=== PATIENT | female | born 1955 | race Hispanic/Latino ===

== ENCOUNTER 2018-06-01 19:51 | Emergency (ER) | payer MEDICARE, BC ==
[~2018-06-01] VITALS: Ht 165.1 cm; Wt 79.4 kg
[~2018-06-01 19:51] MED LIST: ATORVASTATIN CA40 MG PO; LEVOTHYROXINE75 MCG PO; LISINOPRIL-HCT1 EAC2 PO
[2018-06-01] MEDS ORDERED: HYDROCODONE/APAP 5MG-325MG TAB PO NR (20:45)
--- NOTE | 2018-06-01 21:16 | Diagnostic Imaging Report ---
Exam: Left Ankle Series. History: Left lateral side of ankle pain, status post fall Comparison: None. DISCUSSION: 3 views of the left ankle. There is normal bone mineralization. No evidence of acute, displaced fracture or dislocation. Linear lucency in the medial malleolus seen only in one view extends outside the edges of the bone into the soft tissues and likely reflects summation of shadows. Ankle mortise is preserved.No osteochondral lesion. No abnormal soft tissue calcification or mass. Soft tissue swelling in the lateral aspect of the ankle. IMPRESSION: 1. No acute, displaced fracture or dislocation. 2. Linear lucency in the medial malleolus is seen only in one view, extends outside the edges of the bone into the soft tissues and likely reflects summation of shadows, given the absence of soft tissue swelling. The staff physician below has personally reviewed this exam on the date of dictation. Signed by: Dr. Zack Dias M.D. on 06/01/2018 9:13 PM
[2018-06-01] MEDS ORDERED: TYLENOL WITH C1 EACH PO (21:45)
== END 2018-06-01 22:03 | disposition home or self-care (01) ==
LOC: FSED 19:51
DX: S93.412A Sprain of calcaneofibular ligament of left ankle, initial encounter (principal); X50.1XXA Overexertion from prolonged static or awkward postures, initial encounter; Y92.008 Other place in unspecified non-institutional (private) residence as the place of occurrence of the external cause; I10 Essential (primary) hypertension; E07.9 Disorder of thyroid, unspecified
CPT/HCPCS: 99283

== ENCOUNTER 2018-10-28 08:50 | Observation (INO) | payer BC, MEDICARE ==
[~2018-10-28] VITALS: Ht 162.6 cm; Wt 81.6 kg
[~2018-10-28 08:50] MED LIST changes: +TYLENOL WITH C1 EACH PO
--- OUTSIDE RECORDS SUMMARY | 2018-10-28 08:53 | XMS REPORT ---
[facility] Address Unknown Phone Unavailable Care Team Providers Care Knot Tier Name Role Phone Dean ABRAMS Unavailable Unavailable Problems This patient has no known problems. Allergies, Adverse Reactions, Alerts This patient has no known allergies or adverse reactions. Medications This patient has no known medications. Results Test Description Test Time Test Comments Text Results Atomic Results Result Comments ANKLE [facility] 2018-06-01 21:10:00 [place] [address] Patient Name: TREY BARNHART MR #: [id number] : 1955 Age/Sex: 63/F Req #: [id number] Adm Physician: Ordered by: NATASHA ABRAMS MD Report #: [id number] Location: [facility] Room/Bed: Procedure: [id number] HOPD/ANKLE [facility] Exam Date: 06/01/18 Exam Time: 2049 REPORT STATUS: Signed Exam: Left Ankle Series. History: Left lateral side of ankle pain, status post fall Comparison: None. DISCUSSION: 3 views of the left ankle. There is normal bone mineralization. No evidence of acute, displaced fracture or dislocation. Linear lucency in the medial malleolus seen only in one view extends outside the edges of the bone into the soft tissues and likely reflects summation of shadows. Ankle mortise is preserved.No osteochondral lesion. No abnormal soft tissue calcification or mass. Soft tissue swelling in the lateral aspect of the ankle. IMPRESSION: 1. No acute, displaced fracture or dislocation. 2. Linear lucency in the medial malleolus is seen only in one view, extends outside the edges of the bone into the soft tissues and likely reflects summation of shadows, given the absence of soft tissue swelling. The staff physician below has personally reviewed this exam on the date of dictation. Signed by: Dr. Ria Dias M.D. on 06/01/2018 9:13 PM Dictated By: RIA DIAS MD 12 Transcribed By: TRINA on 06/01/182112 COPY TO: NATASHA ABRAMS MD
[2018-10-28] MEDS ORDERED: LISINOPRIL-HCT1 EAC1 PO (09:25)
--- NOTE | 2018-10-28 09:38 | Diagnostic Imaging Report ---
EXAM: CXR 2 VIEW - HOPD, PA and lateral DATE: 10/28/2018 Time stamp on exam: 9:24 AM INDICATION: Status post fall COMPARISON: None FINDINGS: LINES/TUBES: None LUNGS: No consolidations or edema. PLEURA: No effusions or pneumothorax. HEART AND MEDIASTINUM: Normal size and contour. BONES AND SOFT TISSUES: No acute findings. No obvious rib fractures. IMPRESSION: No acute thoracic abnormality. Signed by: Dr. Baudilio Canales DO on 10/28/2018 9:35 AM
--- NOTE | 2018-10-28 10:03 | Diagnostic Imaging Report ---
Examination: CT head without contrast Clinical Indication: Syncope. Fall with head injury. Technique: Transaxial noncontrast images from the skull base through the vertex were obtained. Sagittal and coronal reformatted images were done. Dose modulation, iterative reconstruction, and/or weight based adjustment of the mA/kV was utilized to reduce the radiation dose to as low as reasonably achievable. Comparison: None. Findings: Scalp: No abnormalities. Bones: Intact. No fractures. No blastic or lytic lesions. Brain sulci: Appropriate for patient's age. Ventricles: Normal in size and configuration. No hydrocephalus. Extra-axial space: No abnormalities. Parenchyma: No abnormal densities. No masses, hemorrhage, or acute or chronic cortical based vascular insults. Suprasellar region: No abnormalities. Craniocervical junction: The foramen magnum is patent. No Chiari one malformation. Incidental findings: Near complete opacification of the partially visualized bilateral maxillary sinuses. Moderate inflammatory mucosal thickening of the bilateral ethmoid air cells. Mild inflammatory mucosal thickening of the bilateral sphenoid sinuses. Impression: No intracranial abnormality. Signed by: Dr. Kim Hernandez M.D. on 10/28/2018 9:59 AM
[2018-10-28] MEDS ORDERED: POTASSIUM CHLORIDE 20 MEQ TAB CR PO STA (10:15)
[2018-10-28] MEDS ORDERED: SODIUM CHLORIDE 0.9% 1000ML 1,000 ML IV SCH (10:30)
[2018-10-28] MEDS ORDERED: ASPIRIN 325 MG TAB PO ONE (10:45)
[2018-10-28] MEDS: SODIUM CHLORIDE 0.9% 1000ML 1,000 ML IV SCH ×3 (11:05→19:55)
--- NOTE | 2018-10-28 11:07 | NUR ---
UPDATED PLAN OF CARE. SON TO GET PT SOME FOOD. MANY WARM BLANKETS GIVEN
--- NOTE | 2018-10-28 11:13 | NUR ---
called [facility] for transport
--- NOTE | 2018-10-28 11:57 | NUR ---
called for updated eta. taty at [facility] states,"i dont know theyre not there yet." she is checking
--- NOTE | 2018-10-28 13:00 | NUR ---
patient arrived on unit alert and oriented with family at bedside. call kaur within reach and bed in lowest position.
[2018-10-28 13:01] VITALS: BP 153/68
[2018-10-28 13:06] VITALS: BP 153/68
[2018-10-28] MEDS ORDERED: NIFEDIPINE CR 30 MG TAB PO NR (16:30)
[2018-10-28 16:32] VITALS: BP 177/74
--- NOTE | 2018-10-28 18:40 | NUR ---
rounded with machinist linotype nurse, patient aware of change. Call kaur within reach and bed in lowest position with family at bedside
[2018-10-28 18:42] LABS: CREATINE KINASE MB 0.1 ng/mL (0-5.0)
[2018-10-28 19:24] VITALS: BP 166/73
[2018-10-28 19:25] VITALS: BP 166/73
[2018-10-28 23:35] VITALS: BP 126/64
--- NOTE | 2018-10-29 02:39 | Consultation ---
DATE OF CONSULTATION: 10/28/2018 Neurology Consult Note HISTORY OF PRESENT ILLNESS: The patient is a 63-year-old right-hand dominant woman with past medical history significant for hypertension and thyroid disease, admitted to [facility] on October 28, 2018, following a syncopal event. For three days prior to admission, the patient has experienced subjective fevers, dry cough, chest pain, intermittent palpitations, and decreased oral intake. At approximately 0740 hours on the day of admission, the patient was preparing breakfast when she experienced the sudden onset of dizziness, which is further described as lightheadedness. The patient does report chest pain and palpitations associated with the dizziness. She does not report shortness of breath, numbness or tingling, or an epigastric rising sensation. Following the sudden onset of dizziness, the patient sat in a nearby chair, then immediately lost consciousness, falling to the floor, probably hitting her head on a kitchen island as she fell. The patient was reportedly unconscious for several minutes. During this time, there was no stiffening or shaking of the arms or legs. The patient's son describes the patient's extremities as being loose. There was no foaming saliva, tongue biting, or bladder or bowel incontinence. When she regained consciousness, the patient knew who she was, recognized her family members, recognized her kitchen. However, she was confused as to why she was lying on the floor. The patient's son does report Ms. Yonatan Booker did vomit immediately after regaining consciousness. There is no known history of febrile seizures. The patient does not report a personal history of seizures. Ms. Yonatan Booker does have a daughter with epilepsy. There is no reported prior head trauma or meningitis/encephalitis. REVIEW OF SYSTEMS: Subjective fevers, chest pain, fast heartbeat, shortness of breath, dry cough, nausea, vomiting, syncope. Otherwise, a 12-point review of systems is negative. PAST MEDICAL HISTORY: Hypertension, possible bradycardia, thyroid disease, hypokalemia. PAST SURGICAL HISTORY: None. PAST HOSPITALIZATIONS: Childbirth x3, hypertension, chest pain. FAMILY MEDICAL HISTORY: The patient's father is from coronary artery disease with a myocardial infarction. The patient's mother when she was a year old. Her cause of is unknown. Ms. Yonatan Booker had five siblings, two brothers and three sisters. One brother was killed. One sister is . Her only known medical history was hypertension. The second brother and remaining two sisters are alive. All have hypertension. Ms. Yonatan Booker has three children, one son and two daughters, all of whom are living. The son has hypertension and diabetes mellitus. A daughter has hypertension and epilepsy. The second daughter is healthy. SOCIAL HISTORY: The patient is . She is retired. There is no reported current or prior tobacco, alcohol, or recreational drug use. HOME MEDICATIONS: Lisinopril/hydrochlorothiazide one tablet by mouth daily, levothyroxine 75 mcg by mouth daily. HOSPITAL MEDICATIONS: Levothyroxine, nifedipine. ALLERGIES: NO KNOWN DRUG ALLERGIES. NO KNOWN FOOD ALLERGIES. NO KNOWN ALLERGIES TO LATEX. NO KNOWN ALLERGIES TO IODINE OR OTHER CONTRAST MATERIALS. PHYSICAL EXAMINATION: VITAL SIGNS: Height 64 inches, weight 180 pounds, BMI 30.9 kg/m2, blood pressure 166/73 mmHg, pulse 66 beats per minute, respiratory rate 20 breaths per minute, and oxygen saturation 99% on room air. GENERAL: The patient is awake and alert, does not appear distressed. Obese. HEENT: Normocephalic, atraumatic. Pupils are equal, round, and reactive to light. Moist mucous membranes. NECK: Supple. No appreciable thyromegaly. No appreciable carotid bruits. CARDIOVASCULAR: S1, S2, regular rate and rhythm. No murmurs, rubs, or gallops. RESPIRATORY: Clear to auscultation bilaterally. No wheezes, rhonchi, or rales. EXTREMITIES: The skin is warm and dry. No clubbing, cyanosis, or edema. The posterior tibial and dorsalis pedis pulses are 2+ and symmetric. SKIN: No rashes or lesions. NEUROLOGIC: Memory/Attention: The patient is awake and alert, oriented to person, place, time, and situation. Cranial Nerves: Cranial nerve I - not tested. Cranial nerves II, III, IV, and - pupils are equal and round, reactive briskly to light (from 4 mm to 2 mm). Extraocular movements intact. No nystagmus. Cranial nerve V - sensation to light touch and pinprick is intact in the bilateral V1 through V3 distributions. Strength in the temporalis and masseter muscles are within normal limits. Cranial nerve VII - the face is symmetric as are all facial movements. Strength is within normal limits. Cranial nerve VIII - hearing is intact to finger rub bilaterally. Cranial nerves IX, X - the soft palate elevates equally and symmetrically. Cranial nerve XI - normal strength of the bilateral sternocleidomastoid and trapezius muscles. Cranial nerve XII - the tongue protrudes midline and moves symmetrically from ibci-st-rmyv. Strength: Bulk is normal. Strength is 5/5 in the bilateral deltoids, biceps, triceps, wrist flexors and extensors, finger flexors and extensors, intrinsic hand muscles, hip flexors, knee flexors and extensors, ankle dorsiflexion and plantar flexion, and intrinsic foot muscles. Tone is normal. DTRs: Deep tendon reflexes are 1+ and symmetric at the triceps, biceps, brachioradialis, patellas, and Achilles. Plantar responses are flexor bilaterally. Sensation: Sensation is intact to light touch and pinprick in both arms and both legs. Cerebellar: Iqujjn-xrak-cjpsde and heel-amado movements are intact without dysmetria or other impairment. Gait: Deferred. Speech: Spontaneous speech is normal without appreciable dysarthria or aphasia. Repetition is intact. Involuntary Movements: None. Pronator Drift: None. LABORATORY DATA: The only laboratory data available are muscle enzymes. Creatine kinase 38, CK-MB 0.10, troponin I 0.009. DIAGNOSTIC STUDIES: Electrocardiogram on 10/28/2018: Normal sinus rhythm at 61 beats per minute. Chest x-ray on 10/28/2018: No acute thoracic abnormality. CT of the brain without contrast on 10/28/2018: On my review, there is no evidence of recent or remote large territorial ischemia, hemorrhage, mass, or mass effect. Cerebral volumes are appropriate for age. There are no findings suggestive of chronic small vessel ischemic disease. ASSESSMENT AND PLAN: Ms. Yonatan Bokoer is a 63-year-old right-hand dominant woman with past medical history as detailed, admitted to [facility] on October 28, 2018, status post a syncopal event. The patient's neurological examination is nonfocal. Her laboratory data and other diagnostic studies have been reviewed and are documented above. Based on the description of the event as well as the patient's nonfocal neurological examination, there is low suspicion for an underlying neurological disorder. There is no further evaluation or treatment recommended by the Neurology service. Thank you for this consultation. Please call again with any questions or concerns. TIME SPENT: 50 minutes. Sweta Wise MD CP/SANTOS /[id number] MTDD
[2018-10-29 03:08] LABS: CREATINE KINASE 38 IU/L (29-168)
[2018-10-29] MEDS ORDERED: LEVOTHYROXINE SODIUM 75 MCG TAB PO SCH (06:00)
--- NOTE | 2018-10-29 06:40 | NUR ---
report received from security shift supervisor, patient resting comfortably in bed with family at bedside. Call kaur within reach and bed in lowest position.
[2018-10-29] MEDS ORDERED: ACETAMINOPHEN 325 MG TAB PO PRN (08:15)
[2018-10-29 08:35] VITALS: BP 153/67
[2018-10-29 08:37] LABS: BASOPHILS % 0.8 % (0.0-1.0); EOSINOPHILS # (AUTO) 0.1 (0.0-0.4); EOSINOPHILS % 4.2 % (0.0-6.0); HEMATOCRIT 38.6 % (34.2-44.1); HEMOGLOBIN 12.7 g/dL (12.0-16.0); LYMPHOCYTES # (AUTO) 1.2 (1.0-3.2); LYMPHOCYTES % 43.6 % (18.0-39.1); MEAN CORPUSCULAR HEMOGLOBIN 28.6 pg (28-32); MEAN CORPUSCULAR HGB CONC 32.9 g/dL (31-35); MEAN CORPUSCULAR VOLUME 86.9 fL (81-99); MONOCYTES # (AUTO) 0.3 (0.2-0.8); MONOCYTES % 11.7 % (4.4-11.3); NEUTROPHILS # (AUTO) 1.1 (2.1-6.9); NEUTROPHILS % 39.7 % (38.7-80.0); PLATELET COUNT 171 x10e3/uL (140-360); RED BLOOD COUNT 4.44 x10e6/uL (3.6-5.1); RED CELL DISTRIBUTION WIDTH 13.2 % (11.7-14.4)
[2018-10-29 08:55] LABS: ANION GAP 10.7 mmol/L (8-16); BLOOD UREA NITROGEN 10 mg/dL (7-26); BUN/CREATININE RATIO 13 (6-25); CALCIUM 9.2 mg/dL (8.4-10.2); CARBON DIOXIDE 24 mmol/L (22-29); CHLORIDE 105 mmol/L (98-107); CREATININE, SERUM 0.75 mg/dL (0.57-1.11); EST GLOMERULAR FILTRATION RATE > 60 ML/MIN (60-); GLUCOSE 96 mg/dL (74-118); POTASSIUM 3.7 mmol/L (3.5-5.1); SODIUM 136 mmol/L (136-145)
[2018-10-29] MEDS ORDERED: TRIAMCINOLONE ACET 40 MG/ML VIAL IM ONE (09:00)
[2018-10-29] MEDS ORDERED: GUAIFENESIN 600 MG TAB PO SCH (09:00)
[2018-10-29] MEDS ORDERED: NIFEDIPINE CR 30 MG TAB PO SCH (09:00)
[2018-10-29] MEDS ORDERED: BENZONATATE 100 MG CAP PO SCH ×3 (09:00→09:30)
[2018-10-29] MEDS ORDERED: FLUTICASONE PROPIONATE NASAL SPRAY NS SCH (09:00)
[2018-10-29] MEDS ORDERED: CEPHALEXIN 500 MG CAP PO SCH ×3 (09:00→14:00)
[2018-10-29] MEDS ORDERED: FLUTICASONE PRO16 GM NS (10:52)
[2018-10-29] MEDS ORDERED: METHYLPREDNISOLO4 M1 (10:54)
[2018-10-29] MEDS ORDERED: CLARITIN-D 241 EACH PO (10:55)
[2018-10-29] MEDS ORDERED: TESSALON PERLE100 MG PO (10:55)
[2018-10-29] MEDS ORDERED: K DUR10 MEQ PO (10:56)
[2018-10-29] MEDS ORDERED: KEFLEX500 MG PO (10:56)
--- NOTE | 2018-10-29 11:50 | NUR ---
patient alert and oriented. Discharge instructions given at this time, patient and family verbalized understanding. IV removed, catheter in tact and small dressing applied. patient to be wheeled from floor to personal auto for daughter to drive home.
--- NOTE | 2018-10-30 02:54 | Discharge Summary ---
The patient is on observation. Observation day is october 28, 2018. FINAL DIAGNOSES: 1. Status post syncopal episode after multiple cough and sinus congestion. 2. Allergic rhinitis, most likely. SUMMARY: The patient is a 63-year-old female, had been having a problem with upper respiratory problem with sore throat and sinus congestion. The patient was having an increasing cough. She was trying to make breakfast when she had multiple symptoms as mentioned above and subsequently sat down and had a syncopal episode. Neurology saw the patient. Dr. Wise did not see any neurological deficit. No further neurological workup needed. EKG normal sinus rhythm. CT scan of the brain is negative. Chest x-ray unremarkable. The patient still has some sinus congestion and headaches. The patient is otherwise stable at this time. She will go home today, taking Flonase, Medrol Dosepak, Tessalon Perles, and Claritin along with Keflex 500 mg t.i.d. for 7 days. The patient is otherwise stable. She will take Tylenol at home for headache. The patient is stable, discharged home today. MD JAIDEN Kirk/SANTOS /[id number]
== END 2018-10-29 12:00 | disposition home or self-care (01) ==
LOC: FSED 08:50 → ERHOLD 10:52 → IMCU 13:20
PROVIDERS: ADMIT Internal Medicine; ATTEND Internal Medicine
DX: R55 Syncope and collapse (principal); W01.10XA Fall on same level from slipping, tripping and stumbling with subsequent striking against unspecified object, initial encounter; Y93.89 Activity, other specified; Y92.010 Kitchen of single-family (private) house as the place of occurrence of the external cause; I10 Essential (primary) hypertension; E03.8 Other specified hypothyroidism; E87.6 Hypokalemia; R05 Cough; J06.9 Acute upper respiratory infection, unspecified
CPT/HCPCS: 36415; 70450; 71046; 80048; 80053; 81003; 82550 ×2; 82553 ×2; 84484 ×2; 85025 ×2; 93005; 93306; 93880; 99284; G0378 ×2; J3301; J7030

== ENCOUNTER 2021-11-11 00:01 | Emergency (ER) | payer MEDICARE ==
[~2021-11-11] VITALS: Ht 162.6 cm; Wt 81.6 kg
[~2021-11-11 00:01] MED LIST changes: +CLARITIN-D 241 EACH PO; +FLUTICASONE PRO16 GM NS; +K DUR10 MEQ PO; +KEFLEX500 MG PO; +LISINOPRIL-HCT1 EAC1 PO; +METHYLPREDNISOLO4 M1; +TESSALON PERLE100 MG PO
[2021-11-11 00:30] LABS: BASOPHILS % 0.6 % (0.0-1.0); EOSINOPHILS # (AUTO) 0.3 (0.0-0.4); EOSINOPHILS % 5.3 % (0.0-6.0); HEMATOCRIT 36.8 % (34.2-44.1); HEMOGLOBIN 11.9 g/dL (12.0-16.0); MEAN CORPUSCULAR HEMOGLOBIN 28.5 pg (28-32); MEAN CORPUSCULAR HGB CONC 32.3 g/dL (31-35); MEAN CORPUSCULAR VOLUME 88.2 fL (81-99); MONOCYTES # (AUTO) 0.5 (0.2-0.8); MONOCYTES % 8.6 % (4.4-11.3); NEUTROPHILS # (AUTO) 3.4 (2.1-6.9); NEUTROPHILS % 53.3 % (38.7-80.0); PLATELET COUNT 216 x10e3/uL (140-360); RED BLOOD COUNT 4.17 x10e6/uL (3.6-5.1)
[2021-11-11 00:34] LABS: CLARITY,URINE CLEAR (CLEAR); COLOR,URINE YELLOW (YELLOW); KETONES,URINE NEGATIVE (NEGATIVE); LEUKOCYTE ESTERASE ,URINE NEGATIVE (NEGATIVE); NITRITE,URINE NEGATIVE (NEGATIVE); PROTEIN,URINE DIPSTICK NEGATIVE (NEGATIVE); URINE UROBILINOGEN 0.2 mg/dL (0.2 - 1)
[2021-11-11 00:38] LABS: BACTERIA,URINE FEW /HPF; EPITHELIAL CELLS,URINE FEW /LPF; RBC,URINE 0-5 /HPF (0-5)
[2021-11-11 00:48] LABS: ALBUMIN 3.8 g/dL (3.5-5.0); ALBUMIN/GLOBULIN RATIO 1.1 (0.8-2.0); ANION GAP 12.4 mmol/L (8-16); CALCIUM 9.4 mg/dL (8.4-10.2); CREATININE, SERUM 0.79 mg/dL (0.57-1.11); POTASSIUM 3.4 mmol/L (3.5-5.1)
[2021-11-11 02:01] VITALS: BP 161/74
== END 2021-11-11 01:45 | disposition home or self-care (01) ==
LOC: ER 00:04
DX: I10 Essential (primary) hypertension (principal); R07.81 Pleurodynia; E78.5 Hyperlipidemia, unspecified; E03.9 Hypothyroidism, unspecified
CPT/HCPCS: 36415; 70450; 71045; 80053; 81001; 84484; 85025; 93005; 99284